=== PATIENT | female | born 2000 | race Two or more races ===

== ENCOUNTER 2022-05-09 13:59 | Emergency (ER) | payer MEDICAID ==
[~2022-05-09] VITALS: Ht 157.5 cm; Wt 59.4 kg
[2022-05-09 14:39] VITALS: BP 129/99
[2022-05-09] MEDS ORDERED: ONDANSETRON ODT 4 MG TAB PO ONE (15:00)
[2022-05-09] MEDS ORDERED: FAMOTIDINE 20 MG TAB PO ONE (15:00)
[2022-05-09] MEDS ORDERED: MAALOX PLUS or MAALOX 30 ML PO ONE (15:00)
[2022-05-09] MEDS ORDERED: LIDOCAINE VISCOUS 2% 15ML UD PO ONE (15:00)
[2022-05-09 15:27] LABS: Potassium 3.8 mmol/L (3.5-5.1)
[2022-05-09 15:28] LABS: Basophils # (auto) 0 10 ^3/uL (0-0.2); Basophils % (auto) 0.4 % (0.0-2.0); Eosinophils # (auto) 0.2 10 ^3/uL (0-0.8); Eosinophils % (auto) 1.9 % (0.0-7.0); Hematocrit 40.6 % (36.0-46.0); Hemoglobin 13.9 g/dL (12.2-16.2); Lymphocytes # (auto) 2.4 10 ^3/uL (0.4-5.4); Lymphocytes % (auto) 21.5 % (10.0-50.0); Mean Corpuscular Hemoglobin 29.9 pg (28.0-32.0); Mean Corpuscular Hgb Conc. 34.2 g/dL (32.0-36.0); Mean Corpuscular Volume 87.2 fL (80.0-100.0); Monocytes # (auto) 0.6 10 ^3/uL (0-1.3); Monocytes % (auto) 5.2 % (0.0-12.0); Neutrophils # (auto) 7.9 10 ^3/uL (1.6-8.6); Red Blood Cells 4.66 10^6/uL (4.0-5.20); Red Cell Distribution Width 12.8 % (11.8-14.3); White Blood Cell 11.2 10^3/uL (4.4-10.8)
[2022-05-09 15:32] LABS: BUN/Creatinine Ratio 13.1; Calcium 9.9 mg/dL (8.5-10.1)
[2022-05-09 15:37] LABS: Bilirubin, Total 0.4 mg/dL (0.2-1.0); Total Protein 8.5 g/dL (6.4-8.2)
[2022-05-09 16:58] LABS: Urine Bacteria FEW /hpf (None Seen); Urine Blood Negative /uL (Negative); Urine Mucus FEW (None Seen); Urine Specific Gravity 1.029 (1.001-1.035); Urine WBC 4 /hpf (0 - 5)
[2022-05-09] MEDS ORDERED: CEPH-322 PO (17:22)
[2022-05-09] MEDS ORDERED: OMEP-434 PO (17:22)
== END 2022-05-10 01:59 | disposition home or self-care (01) ==
LOC: ER 13:59
DX: N39.0 Urinary tract infection, site not specified (principal); R10.13 Epigastric pain
CPT/HCPCS: 36415; 76705; 80053; 81001; 81025; 83690; 85025

== ENCOUNTER 2022-07-24 16:46 | Emergency (ER) | payer MEDICAID ==
[~2022-07-24] VITALS: Ht 157.5 cm; Wt 56.6 kg
[~2022-07-24 16:46] MED LIST: CEPH-322 PO; OMEP-434 PO
[2022-07-24 17:01] VITALS: BP 139/82
== END 2022-07-24 22:31 | disposition left against medical advice (07) ==
LOC: ER 16:46
DX: J02.9 Acute pharyngitis, unspecified (principal); Z53.21 Procedure and treatment not carried out due to patient leaving prior to being seen by health care provider

== ENCOUNTER 2024-11-01 05:34 | Emergency (ER) | payer MEDICAID ==
[~2024-11-01] VITALS: Ht 157.5 cm; Wt 60.7 kg
[~2024-11-01 05:34] MED LIST changes: -CEPH-322 PO; +CEPH250C PO; +DOCU-265 PO; +FER325T PO; +HYDR-4902 PO; +IBUP-1455 PO; +PREN-96 PO
--- NOTE | 2024-11-01 06:29 | ED.PDOC ---
GI ASSESSMENT HPI Comments This is a 24 year-old female with a chief complaint of epigastric abdominal pain with associated N/V and constipation as of X2 days ago. Patient reports abdominal pain radiating to the back, with no associated alleviating factors. Patient states that she has a history of abdominal pain in the past and is currently taking Prophylaxis as prescribed. Patient reports coming to the ED for epigastric abdominal pain and being diagnosed with gallbladder stones. Patient is . Patient has no further complaints at this time and otherwise denies further associated symptoms of diarrhea, dysuria, hematuria, chest pain, migraine, fever, or chills. Chief Complaint: Abdominal Pain Time Seen by MD: 06:13 Primary Care Provider: JOSE Reviewed Notes: Medications, Allergies Allergies: Coded Allergies: Amoxicillin (Verified Allergy, Unknown, 12/26/23) Penicillins (Verified Allergy, Unknown, 12/26/23) Home Meds Active Scripts Cephalexin (KEFLEX CAPSULE) 250 Mg Cp, 250 MG PO QID for 5 Days, #20 BOTTLE Prov:CHANTAL KUO MD 11/01/24 Ferrous Sulfate (Ferrous Sulfate) 325 Mg Tab, 325 MG PO DAILY for 30 Days, #30 TAB 2 Refills Prov:RAI CARRERA 11/28/23 Hydrocodone-Acetaminophen (Hydrocodone Bitartrate/AC 5-325 mg) 1 Tab Tab, 1 TAB PO Q4HPRN PRN for 5 Days, #20 TAB Prov:RAI CARRERA 11/28/23 Ibuprofen Micronized (Ibuprofen) 800 Mg Tab, 800 MG PO Q8HP PRN for 30 Days, #90 TAB Prov:RAI CARRERA 11/28/23 Docusate Sodium (Docusate Sodium) 100 Mg Cap, 100 MG PO Q12HR PRN for 30 Days, #60 CAP 2 Refills Prov:RAI CARRERA 11/28/23 Omeprazole Magnesium (Omeprazole) 20 Mg Tab, 20 MG PO DAILY for 14 Days, #14 TAB Prov:MARIANO BARDALES MD 05/09/22 Cephalexin (KEFLEX CAPSULE) 250 Mg Cp, 250 MG PO QID for 7 Days, #28 TAB Prov:MARIANO BARDALES MD 05/09/22 Reported Medications Vit W/ Ferrous Fumara ( One Daily) Daily Tab, 1 TAB PO DAILY, #90 TAB 3 Refills 08/17/23 Information Source: Patient Mode of Arrival: Ambulatory Timing: Days Duration: Since onset Severity: Moderate Pain Location: Epigastric Associated sign and symptoms: Nausea, Vomiting, Constipation, Abdominal Pain Past Medical History PAST MEDICAL HISTORY: Denies Surgical History: 1 Para 1 Family History Family History: Unknown Social History Smoker: Non-Smoker Alcohol: Denies ETOH Use Drugs: Denies Drug Use Lives In: Home Constitutional: denies: chills, diaphoresis, fatigue, fever, malaise, sweats, weakness, others EENTM: denies: blurred vision, double vision, ear bleeding, ear discharge, ear drainage, ear pain, ear ringing, eye pain, eye redness, hearing loss, mouth pain, mouth swelling, nasal discharge, nose bleeding, nose congestion, nose pain, photophobia, tearing, throat pain, throat swelling, voice changes, others Respiratory: denies: cough, hemoptysis, orthopnea, SOB at rest, shortness of breath, SOB with excertion, stridor, wheezing, others Cardiovascular: denies: chest pain, dizzy spells, diaphoresis, Dyspnea on exertion, edema, irregular heart beat, left arm pain, lightheadedness, palpitations, PND, syncope, others Gastrointestinal: reports: abdominal pain, constipated, nausea, vomiting; denies: abdomen distended, blood streaked bowels, diarrhea, dysphagia, difficulty swallowing, hematemesis, melena, poor appetite, poor fluid intake, rectal bleeding, rectal pain, others Genitourinary: denies: abnormal vagina bleeding, burning, dyspareunia, dysuria, flank pain, frequency, hematuria, incontinence, pain, , vagina discharge, urgency, others Neurological: denies: dizziness, fainting, headache, left sided numbness, left sided weakness, numbness, paresthesia, pre-existing deficit, right sided numbness, right sided weakness, seizure, speech problems, tingling, tremors, weakness, others Musculoskeletal: reports: back pain; denies: gout, joint pain, joint swelling, muscle pain, muscle stiffness, neck pain, others Integumetry: denies: bruises, change in color, change in hair/nails, dryness, laceration, lesions, lumps, rash, wounds, others Allergic/Immunocompromised: denies: Difficulty Healing, Frequent Infections, Hives, Itching, others Hematologic/Lymphatic: denies: anemia, blood clots, easy bleeding, easy bruising, swollen glands, others Endocrine: denies: excessive hunger, excessive sweating, excessive thirst, excessive urination, flushing, intolerance to cold, intolerance to heat, unex plained weight gain, unexplained weight loss, others Psychiatric: denies: anxiety, bipolar disorder, depression, hopeless, panic disorder, schizophrenia, sleepless, suicidal, others All Other Systems: Reviewed and Negative Physical Exam General Appearance: Moderate Distress HEENT: Normal ENT Inspection, Pharynx Normal, TMs Normal Neck: Full Range of Motion, Non-Tender, Normal, Normal Inspection Respiratory: Chest Non-Tender, Lungs Clear, No Accessory Muscle Use, No Respiratory Distress, Normal Breath Sounds Cardiovascular: No Edema, No JVD, No Murmur, No Gallop, Normal Peripheral Pulses, Regular Rate/Rhythm Breast Exam: Deferred Gastrointestinal: RUQ Genitalia: Deferred Pelvic: Deferred Rectal: Deferred Extremities: No calf tenderness, Normal capillary refill, Normal inspection, Normal range of motion, Non-tender, No pedal edema Musculoskeletal : Apperance: Normal Neurologic: Alert, composing machine operator II-XII nml as Tested, No Motor Deficits, Normal Affect, Normal Mood, No Sensory Deficits Cerebellar Function: Normal Reflexes: Normal Skin: Dry, Normal Color, Warm Peripheral Pulses: 3+ Radial (R), 3+ Radial (L) Lymphatic: No Adenopathy Was a procedure done? Was a procedure done?: No GI differential Dx Differential Diagnosis: Constipation, Diverticular disease, Esophagitis, Gastritis/PUD, Gastroenteritis, Dehydration, Food Poisoning, Bacterial, Parasitic, Viral X-Ray, Labs, Meds, VS Vital Signs Date Time Temp Pulse Resp B/P (MAP) Pulse Ox O2 Delivery O2 Flow Rate FiO2 11/01/24 07:34 59 18 102/60 11/01/24 07:32 97.4 59 18 102/60 (74) 100 97.4 11/01/24 06:51 60 16 118/64 11/01/24 06:30 97.5 60 16 118/64 (82) 96 97.5 11/01/24 05:44 97.7 63 20 111/75 (87) 96 97.7 11/01/24 05:35 97.7 63 20 111/75 96 97.7 Lab Test 11/01/24 06:38 11/01/24 05:43 Range/Units White Blood Count 6.3 4.4-10.8 10^3/uL Red Blood Count 4.77 4.0-5.20 10^6/uL Hemoglobin 13.7 12.2-16.2 g/dL Hematocrit 39.4 36.0-46.0 % Mean Corpuscular Volume 82.6 80.0-100.0 fL Mean Corpuscular Hemoglobin 28.7 28.0-32.0 pg Mean Corpuscular Hemoglobin Concent 34.7 32.0-36.0 g/dL Red Cell Distribution Width 14.8 H 11.8-14.3 % Platelet Count 326 140-450 10^3/uL Mean Platelet Volume 8.0 6.9-10.8 fL Neutrophils (%) (Auto) 66.9 37.0-80.0 % Lymphocytes (%) (Auto) 24.8 10.0-50.0 % Monocytes (%) (Auto) 7.1 0.0-12.0 % Eosinophils (%) (Auto) 0.7 0.0-7.0 % Basophils (%) (Auto) 0.5 0.0-2.0 % Neutrophils # (Auto) 4.2 1.6-8.6 10 ^3/uL Lymphocytes # (Auto) 1.6 0.4-5.4 10 ^3/uL Monocytes # (Auto) 0.4 0-1.3 10 ^3/uL Eosinophils # (Auto) 0 0-0.8 10 ^3/uL Basophils # (Auto) 0 0-0.2 10 ^3/uL Nucleated Red Blood Cells 0.0 % Sodium Level 140 136-145 mmol/L Potassium Level 3.5 3.5-5.1 mmol/L Chloride Level 104 98-107 mmol/L Carbon Dioxide Level 26 20-31 mmol/L Anion Gap 10 5-15 Blood Urea Nitrogen 12 9-23 mg/dL Creatinine 0.72 0.550-1.02 mg/dL Glomerular Filtration Rate Calc 120 >90 mL/min BUN/Creatinine Ratio 16.7 10.0-20.0 Serum Glucose 130 H 74-106 mg/dL Calcium Level 9.7 8.7-10.4 mg/dL Urine Color Light-yellow Yellow Urine Clarity Turbid H Clear Urine pH 8.0 5.0-9.0 Urine Specific [place] 1.019 1.001-1.035 Urine Protein Negative Negative Urine Ketones Negative Negative Urine Blood Negative Negative /uL Urine Nitrite Negative Negative Urine Bilirubin Negative Negative Urine Urobilinogen 2 H Negative mg/dL Urine Leukocyte Esterase 1+ Negative /uL Urine RBC 1 0 - 4 /hpf Urine Microscopic WBC < 1 0-5 /HPF Urine Squamous Epithelial Cells Few <5 /hpf Urine Amorphous Crystals Few None Seen /hpf Urine Bacteria Few H None Seen /hpf Urine Yeast (Budding) Moderate None Seen /hpf Urine Glucose Normal Normal mg/dL Current Medications Medications (Trade) Dose Ordered Sig/Leanna Route Start Time Stop Time Status Last Admin Morphine Sulfate 4 mg ONCE ONCE IV 11/01/24 06:30 11/01/24 06:31 DC 11/01/24 06:51 Ondansetron HCl (Zofran) 4 mg ONCE ONCE IV 11/01/24 06:30 11/01/24 06:31 DC 11/01/24 06:51 Sodium Chloride 1,000 ml @ 1,000 mls/hr Q1H ONCE IV 11/01/24 06:30 11/01/24 07:29 DC 11/01/24 06:51 [place] [id number] Ph: [phone] DIAGNOSTIC IMAGING Diagnostic Imaging Report : [id number] Signed PATIENT: MITZI GRANT ACCT: [id number] UNIT: [id number] : 2000 LOC: ER ROOM / BED: / AGE / SEX: 24 / F ADM STATUS: REG ER SERVICE ORDERING PHYSICIAN: CHANTAL KUO MD PROCEDURE(s): GBUS - GALLBLADDER REASON: stone ORDER NUMBER(s): [id number], ACCESSION NUMBER(s): [id number] EXAM: US GALLBLADDER INDICATION: stone TECHNIQUE: Multiple real-time sonographic images were obtained of the right upper quadrant. COMPARISON: GALLBLADDER on DOS: 05/09/22 FINDINGS: The liver demonstrates increased echotexture without focal mass lesions. The liver measures 13.2 cm. There is hepatopedal color doppler flow in the main portal vein. There is no intrahepatic biliary ductal dilatation. There are multiple gallstones. The gallbladder wall measures 0.2 cm. The common bile duct measures 0.9 cm. No choledocholithiasis. There is a negative sonographic Abraham's sign. The right kidney measures 10.8 cm. The right kidney is normal in contour, siz e, and shape. The echogenicity is normal. There is no hydronephrosis. The pancreas is not well visualized due to overlying bowel gas. Visualized portions of the aorta and inferior vena cava are unremarkable. No evidence of ascites. IMPRESSION: 1. Multiple gallstones. No findings to suggest acute cholecystitis. The common bile duct is dilated but there is no filling defect to suggest stones in the common bile duct. 2. Examination otherwise unremarkable. Patient alert. Complaining of epigastric pain. Vitals stable. Answering questions. Currently taking GI prophylaxis. WBC within normal limits. Hemoglobin within normal limits. Urinalysis shows UTI. Was given prescription of Keflex antibiotic. Ultrasound of the gallbladder does show gallstones. Explained to the patient. Was told to follow up with her primary care physician. Was told come back if there is any problem. Time of 1ST Reevaluation: 07:14 Reevaluation 1ST: Unchanged Patient Education/Counseling: Diagnosis, Treatment Family Education/Counseling: No Family Present SEPSIS Sepsis Screen Date sepsis recognized/suspect: Nov 01, 2024 Time Sepsis recognized/suspect: 0543 Recent Procedure: No On Antibiotic Therapy: No Respiratory Rate >20: No Heart Rate >90: No Temp<36 C (96.8 F) or >38.3 C: No SBP <90 or MAP <65 mmHG: No New Acute Mental Status Change: No Is the patient on CPAP, BIPAP,: No Physician Orders Gallbladder (11/01/24 06:27) Vital Signs Date Time Temp Pulse Resp B/P (MAP) Pulse Ox O2 Delivery O2 Flow Rate FiO2 11/01/24 07:34 59 18 102/60 11/01/24 07:32 97.4 59 18 102/60 (74) 100 97.4 11/01/24 06:51 60 16 118/64 11/01/24 06:30 97.5 60 16 118/64 (82) 96 97.5 11/01/24 05:44 97.7 63 20 111/75 (87) 96 97.7 11/01/24 05:35 97.7 63 20 111/75 96 97.7 Laboratory Tests Test 11/01/24 06:38 White Blood Count 6.3 10^3/uL (4.4-10.8) Medications Medications Dose Ordered Sig/Leanna Route Start Time Stop Time Status Last Admin Dose Admin Morphine Sulfate 4 mg ONCE ONCE IV 11/01/24 06:30 11/01/24 06:31 DC 11/01/24 06:51 Ondansetron HCl 4 mg ONCE ONCE IV 11/01/24 06:30 11/01/24 06:31 DC 11/01/24 06:51 Sodium Chloride 1,000 ml @ 1,000 mls/hr Q1H ONCE IV 11/01/24 06:30 11/01/24 07:29 DC 11/01/24 06:51 Departure 1 Departure Time of Disposition: 06:41 Impression: Primary Impression: Gastritis Qualified Codes: K29.00 - Acute gastritis without bleeding Additional Impressions: Urinary tract infection Qualified Codes: N30.00 - Acute cystitis without hematuria Gallstones Disposition: 01 HOME / SELF CARE / HOMELESS Condition: Good e-Prescriptions Cephalexin (KEFLEX CAPSULE) 250 Mg Cp 250 MG PO QID for 5 Days, #20 BOTTLE Prov: CHANTAL KUO MD 11/01/24 Discharged With: Self Critical Care Note Critical Care Time?: No Stability Stability form required: No Heart Score Heart Score: Heart Score Response (Comments) Value History N/A 0 EKG N/A 0 Age N/A 0 Risk Factors N/A 0 Troponin N/A 0 Total 0 I personally scribed for CHANTAL KUO MD ([email or web address]) on 11/01/24 at 06:29. Electronically submitted by Neva Cheng ([email or web address]). I personally scribed for CHANTAL KUO MD ([email or web address]) on 11/01/24 at 08:46. Electronically submitted by Neva Cheng ([email or web address]). CHANTAL KUO MD Nov 01, 2024 06:29
[2024-11-01 06:46] LABS: Urine Amorphous Crystal FEW /hpf (None Seen); Urine Budding Yeast MODERATE /hpf (None Seen); Urine Protein, UAD Negative (Negative)
[2024-11-01 06:47] LABS: Hematocrit 39.4 % (36.0-46.0); Hemoglobin 13.7 g/dL (12.2-16.2); Mean Corpuscular Hemoglobin 28.7 pg (28.0-32.0); Mean Corpuscular Volume 82.6 fL (80.0-100.0); Nucleated Red Blood Cells % 0.0 %
[2024-11-01] MEDS: MORPHINE SULFATE 4 MG/ML SYR/VIAL IV ONE (06:51)
[2024-11-01] MEDS: SODIUM CHLORIDE 0.9% 1,000 ML IV ONE (06:51)
[2024-11-01] MEDS: ONDANSETRON HCL 4 MG/2 ML VIAL IV ONE (06:51)
[2024-11-01 06:55] LABS: Anion Gap 10 (5-15); Carbon Dioxide 26 mmol/L (20-31); Chloride 104 mmol/L (98-107); Sodium 140 mmol/L (136-145)
[2024-11-01 06:56] LABS: Calcium 9.7 mg/dL (8.7-10.4)
[2024-11-01 07:01] LABS: BUN/Creatinine Ratio 16.7 (10.0-20.0); Blood Urea Nitrogen 12 mg/dL (9-23)
[2024-11-01 07:02] LABS: Glucose 130 mg/dL (74-106); Potassium 3.5 mmol/L (3.5-5.1)
[2024-11-01] MEDS ORDERED: CEPH250C PO (07:13)
--- NOTE | 2024-11-01 08:14 | DVH ---
EXAM: US GALLBLADDER INDICATION: stone TECHNIQUE: Multiple real-time sonographic images were obtained of the right upper quadrant. COMPARISON: GALLBLADDER on DOS: 05/09/22 FINDINGS: The liver demonstrates increased echotexture without focal mass lesions. The liver measures 13.2 cm. There is hepatopedal color doppler flow in the main portal vein. There is no intrahepatic b iliary ductal dilatation. There are multiple gallstones. The gallbladder wall measures 0.2 cm. The common bile duct measures 0.9 cm. No choledocholithiasis. There is a negative sonographic Abraham's sign. The right kidney measures 10.8 cm. The right kidney is normal in contour, size, and shape. The ech ogenicity is normal. There is no hydronephrosis. The pancreas is not well visualized due to overlying bowel gas. Visualized portions of the aorta and inferior vena cava are unremarkable. No evidence of ascites. IMPRESSION: 1. Multiple gallstones. No findings to suggest acute cholecystitis. The common bile duct is dilated but there is no filling defect to suggest stones in the common bile duct. 2. Examination otherwise unremarkable.
[2024-11-01 08:57] VITALS: BP 109/51; PULSE 55; RESP 20; TEMP 98.2; O2SAT 98
== END 2024-11-01 09:01 | disposition home or self-care (01) ==
LOC: ER 05:34
DX: K29.00 Acute gastritis without bleeding (principal); N39.0 Urinary tract infection, site not specified; K80.20 Calculus of gallbladder without cholecystitis without obstruction; Z98.890 Other specified postprocedural states; Z88.0 Allergy status to penicillin; Z79.899 Other long term (current) drug therapy
CPT/HCPCS: 36415; 76705; 80048; 81001; 85025; 96361; 96374; 96375; 99285; J2270; J2405; J7030